=== PATIENT | male | born 1995 | race African-American/Black ===

== ENCOUNTER 2017-11-14 17:17 | Emergency (ER) | payer BC ==
[~2017-11-14] VITALS: Ht 182.9 cm; Wt 92.0 kg
[~2017-11-14 17:17] MED LIST: FEXO1TAB49 PO
[2017-11-14 17:32] VITALS: TEMP 36.8; Ht 182.9 cm; Wt 92.0 kg
--- NOTE | 2017-11-14 18:09 | EMERGENCY ROOM VISIT NOTE ---
History First contact with patient: 17:58 Chief Complaint: ABDOMINAL PAIN Stated Complaint: ABD DISCOMFORT ON R SIDE Nursing Triage Summary: Patient states since Tuesday mild pain in RUQ of abdomen. Mild diarrhea on Tuesday and Satuday, no BM since Tuesday. Patient states it feels like a pulling pain. History of Present Illness The patient is a 22 year old male who presents to the Emergency Room with complaints of abdominal pain over the last 3 days. He reports there is a "fullness" to the right upper quadrant of his abdomen, which feels very unusual to him. He describes the pain as a dull ache. It does not radiate. He denies any associated nausea, vomiting, change in skin color, change in bowel habit, or other symptoms. He is eating and drinking as normal. He denies excessive alcohol intake. He reports he has an exam today which he had to miss due to this. He called S and was advised to come to the ED. Review of Systems See HPI for pertinent positives & negatives. A total of 10 systems reviewed and were otherwise negative. 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 Oropharynx unremarkable. EYES: Normal conjunctiva. Sclera non-icteric. NECK: Supple. No nuchal rigidity. FROM. No JVD. RESPIRATORY: Clear to auscultation. CARDIAC: Regular rate, normal rhythm. Extremities warm and well perfused. Pulses equal. ABDOMEN: Soft, non-distended. No tenderness to palpation. No rebound or guarding. No masses. MUSCULOSKELETAL: Chest examination reveals no tenderness. The back is symmetrical on inspection without obvious abnormality. There is no CVA tenderness to palpation. No joint edema. LOWER EXTREMITIES: Calves are equal size bilaterally and non-tender. No edema. No discoloration. NEURO: Normal sensorium. No sensory or motor deficits noted. SKIN: No rash or jaundice noted. Medical Decision & Procedures ER Provider Diagnostic Interpretation: BILIARY ULTRASOUND CLINICAL HISTORY: Right upper quadrant abdominal pain COMPARISON STUDY: No previous studies for comparison. FINDINGS: The pancreas was nonvisualized. No focal hepatic masses were identified. No gallstones are visualized. The gallbladder wall is at the upper limits of normal in thickness. There is no pericholecystic fluid. There is no ductal dilatation. The common bile duct measures 3 mm. There is no right-sided hydronephrosis. IMPRESSION: 1. Nondiagnostic evaluation the pancreas 2. No gallstones identified. No evidence of ductal dilatation Laboratory Results 11/14/17 18:45 Red Blood Count 5.08, Mean Corpuscular Volume 85.6, Mean Corpuscular Hemoglobin 29.7, Mean Corpuscular Hemoglobin Concent 34.7, Mean Platelet Volume 10.0, Neutrophils (%) (Auto) 41.2, Lymphocytes (%) (Auto) 44.6, Monocytes (%) (Auto) 7.2, Eosinophils (%) (Auto) 6.1, Basophils (%) (Auto) 0.6, Neutrophils # (Auto) 1.49, Lymphocytes # (Auto) 1.61, Monocytes # (Auto) 0.26, Eosinophils # (Auto) 0.22, Basophils # (Auto) 0.02 11/14/17 18:45 Test 11/14/17 18:45 White Blood Count 3.61 K/uL (4.8-10.8) Red Blood Count 5.08 M/uL (4.7-6.1) Hemoglobin 15.1 g/dL (14.0-18.0) Hematocrit 43.5 % (42-52) Mean Corpuscular Volume 85.6 fL (80-100) Mean Corpuscular Hemoglobin 29.7 pg (25-34) Mean Corpuscular Hemoglobin Concent 34.7 g/dl (32-36) Platelet Count 284 K/uL (130-400) Mean Platelet Volume 10.0 fL (7.4-10.4) Neutrophils (%) (Auto) 41.2 % Lymphocytes (%) (Auto) 44.6 % Monocytes (%) (Auto) 7.2 % Eosinophils (%) (Auto) 6.1 % Basophils (%) (Auto) 0.6 % Neutrophils # (Auto) 1.49 K/uL (1.4-6.5) Lymphocytes # (Auto) 1.61 K/uL (1.2-3.4) Monocytes # (Auto) 0.26 K/uL (0.11-0.59) Eosinophils # (Auto) 0.22 K/uL (0-0.5) Basophils # (Auto) 0.02 K/uL (0-0.2) RDW Standard Deviation 37.5 fL (36.4-46.3) RDW Coefficient of Variation 12.0 % (11.5-14.5) Immature Granulocyte % (Auto) 0.3 % Immature Granulocyte # (Auto) 0.01 K/uL (0.00-0.02) Anion Gap 3.0 mmol/L (3-11) Est Creatinine Clear Calc Drug Dose 114.5 ml/min Estimated GFR () 107.8 Estimated GFR (Non- 93.1 BUN/Creatinine Ratio 10.7 (10-20) Calcium Level 9.0 mg/dl (8.5-10.1) Total Bilirubin 0.3 mg/dl (0.2-1) Aspartate Amino Transf (AST/SGOT) 18 U/L (15-37) Alanine Aminotransferase (ALT/SGPT) 28 U/L (12-78) Alkaline Phosphatase 82 U/L (45-117) Total Protein 7.1 gm/dl (6.4-8.2) Albumin 3.7 gm/dl (3.4-5.0) Globulin 3.4 gm/dl (2.5-4.0) Albumin/Globulin Ratio 1.1 (0.9-2) Lipase 134 U/L (73-393) ED Course 18:00: I evaluated the patient in room B2. A complete history and physical exam were performed. 18:10: I discussed the case with Dr Razo. I ordered a CBC, CMP, and Liver US. 19:10: I checked on the patient, he was awaiting his US. 20:10: His ultrasound and labwork were all unremarkable. I explained these results to him. He was discharged home in good condition. Medical Decision 22 year old male, otherwise healthy, who presents with right upper quadrant pain. His abdominal exam was benign and there were no signs of a surgical abdomen. He had normal bowel and urinary tract function. Differential includes: gallbladder disease, hepatitis, pancreatitis, infectious process, electrolyte abnormality, or musculoskeletal. He had labwork drawn which was unremarkable. His liver US was normal. The patient was explained to rest, apply ice or heat packs to the area, and follow up with his PCP if his symptoms worsened. He was discharged home in good condition. Impression Primary Impression: Right upper quadrant abdominal pain Departure Information Dispostion Home / Self-Care Condition GOOD Referrals [facility] (PCP) Patient Instructions My [facility] [place] [facility]
--- NOTE | 2017-11-14 18:26 | EMERGENCY ROOM VISIT NOTE ---
ED Visit Note First contact with patient: 17:58 Resident Physician Supervision Note: Dr. Jaycee Mckeon was resident physician during care of patient. I separately evaluated patient and did history and exam. I discussed the case with the resident and generally agree with the findings and plan. 22 yr old male with feeling of fullness and mild discomfort RUQ last few days. Looks quite well with benign exam. No jaundice by exam and no swelling in either legs. No trauma/injuries. Denies significant etoh use. Check labs/US Liver which were unremarkable. Symptoms are quite benign as is exam. I do not feel he has surgical abdomen at this time and I feel CT would be inappropriate unless worsening or other symptoms develop. Diagnosis: RUQ Discomfort Documented By: Santosh Razo MD
[2017-11-14] MEDS ORDERED: VNTHFA/IN INH (19:10)
[2017-11-14] MEDS ORDERED: ALBINS INH (19:11)
[2017-11-14 19:12] LABS: BASO % 0.6 %; BASO ABS # 0.02 K/uL (0-0.2); EOS % 6.1 %; EOS ABS # 0.22 K/uL (0-0.5); HEMATOCRIT 43.5 % (42-52); HEMOGLOBIN 15.1 g/dL (14.0-18.0); IG# 0.01 K/uL (0.00-0.02); LYMPH % 44.6 %; LYMPH ABS # 1.61 K/uL (1.2-3.4); MEAN CELL VOLUME 85.6 fL (80-100); MEAN CORPUSCULAR HEMOGLOBIN 29.7 pg (25-34); MEAN CORPUSCULAR HGB CONC 34.7 g/dl (32-36); MONO % 7.2 %; MONO ABS # 0.26 K/uL (0.11-0.59); NEUT % 41.2 %; NEUT ABS # 1.49 K/uL (1.4-6.5); PLATELET COUNT 284 K/uL (130-400); RED CELL DISTRIBUTION WIDTH SD 37.5 fL (36.4-46.3); WHITE BLOOD COUNT 3.61 K/uL (4.8-10.8)
[2017-11-14 19:25] LABS: ALBUMIN 3.7 gm/dl (3.4-5.0); CREATININE 1.13 mg/dl (0.60-1.40); POTASSIUM 3.9 mmol/L (3.5-5.1)
[2017-11-14 19:28] LABS: TOTAL PROTEIN 7.1 gm/dl (6.4-8.2)
--- NOTE | 2017-11-14 20:29 | DIAGNOSTIC IMAGING REPORT ---
BILIARY ULTRASOUND CLINICAL HISTORY: Right upper quadrant abdominal pain COMPARISON STUDY: No previous studies for comparison. FINDINGS: The pancreas was nonvisualized. No focal hepatic masses were identified. No gallstones are visualized. The gallbladder wall is at the upper limits of normal in thickness. There is no pericholecystic fluid. There is no ductal dilatation. The common bile duct measures 3 mm. There is no right-sided hydronephrosis. IMPRESSION: 1. Nondiagnostic evaluation the pancreas 2. No gallstones identified. No evidence of ductal dilatation Electronically signed by: Etienne Dobson M.D. 11/14/2017 8:28 PM Dictated Date/Time: 11/14/2017 8:26 PM
[2017-11-14 20:48] VITALS: BP 145/91; PULSE 57; O2SAT 100
== END 2017-11-14 20:46 | disposition home or self-care (01) ==
LOC: C.EDB 17:19
DX: R10.11 Right upper quadrant pain (principal); Z82.49 Family history of ischemic heart disease and other diseases of the circulatory system